=== PATIENT | female | born 1950 | race Caucasian/White ===

== ENCOUNTER 2020-09-03 18:12 | Emergency (ER) | payer BC, MEDICARE ==
[~2020-09-03] VITALS: Ht 167.6 cm; Wt 117.9 kg
--- NOTE | 2020-09-03 18:50 | ED Upper Extremity ---
General Chief Complaint: Trauma-Non Activation Stated Complaint: FALL - L SHOULDER PAIN Nursing Triage Note: Left upper arm/Shoulder pain, pain to left hip area Nursing Sepsis Screen: No Definite Risk Source: patient Exam Limitations: no limitations (NATANAEL CHIANG MED STUDENT) History of Present Illness Date Seen by Provider: Sep 03, 2020 Time Seen by Provider: 18:25 Initial Comments Patient is a 70yo female presenting via POV c/o L shoulder pain. She states about 30 minutes prior to presentation she was in a hurry and tripped on the top step of the 3 steps leading to her garage and fell, landing on her left shoulder and left hip. She did not hit her head and denies LOC. She placed her shoulder in a sling and had her and daughter drive her straight to the ED. She states the pain is a 7/10 and non-radiating. She has a history of A-fib, but she states the fall was mechanical and denies lightheadedness or syncope. Location Injury Occurred: home Onset: just prior to arrival Pain/Injury Location: left shoulder Method of Injury: fell (NATANAEL CHIANG MED STUDENT) Allergies and Home Medications Allergies Coded Allergies: No Known Drug Allergies (Unverified , 09/03/20) Patient Home Medication List Home Medication List Reviewed: Yes (LINNEA JERONIMO MD) Review of Systems Constitutional: No chills, No dizziness, No fever EENTM: No blurred vision, No double vision, No vision loss Respiratory: No cough, No short of breath, No wheezing Cardiovascular: No chest pain, No palpitations, No syncope Gastrointestinal: No abdominal pain, No constipation, No diarrhea, No nausea, No vomiting Genitourinary: no symptoms reported Musculoskeletal: see HPI Skin: no symptoms reported Psychiatric/Neurological: No Symptoms Reported (NATANAEL CHIANG MED STUDENT) Past Jutzghx-Kcjbpl-Opckyz Hx Patient Social History Alcohol Use: Denies Use Recreational Drug Use: No Smoking Status: Never a Smoker 2nd Hand Smoke Exposure: No Recent Foreign Travel: No Contact w/Someone Who Travel: No Recent Infectious Disease Expo: No Recent Hopitalizations: No Physical Abuse: No Sexual Abuse: No Mistreated: No Fear: No (NATANAEL CHIANG MED STUDENT) Immunizations Up To Date Date of Influenza Vaccine: Sep 02, 2020 (NATANAEL CHIANG MED STUDENT) Seasonal Allergies Seasonal Allergies: No (NATANAEL CHIANG MED STUDENT) Past Medical History Surgeries: Yes (Jaw surgery) Respiratory: No Cardiac: Yes Atrial Fibrillation, Hypertension Neurological: No Genitourinary: No Gastrointestinal: No Musculoskeletal: No Endocrine: No HEENT: No Cancer: No Psychosocial: No Integumentary: No (NATANAEL CHIANG MED STUDENT) Physical Exam Vital Signs Vital Signs - First Documented 09/03/20 18:19 Temp 36.4 Pulse 97 Resp 16 B/P (MAP) 150/119 (129) Pulse Ox 97 O2 Delivery Room Air (LINNEA JERONIMO MD) Vital Signs Capillary Refill : Less Than 3 Seconds (NATANAEL CHIANG MED STUDENT) Height, Weight, BMI Height: '" Weight: lbs. oz. kg; 41.00 BMI Method: General Appearance: WD/WN, no apparent distress HEENT: PERRL/EOMI, pharynx normal Neck: non-tender, full range of motion Cardiovascular: regular rate, rhythm, no edema, no murmur Respiratory: lungs clear, normal breath sounds, no respiratory distress Gastrointestinal: normal bowel sounds, non tender, soft Shoulder: bone tenderness, pain Elbow/Forearm: Left, pain Wrist: Yes non-tender, Yes normal ROM Hand: non-tender, normal ROM Neurologic/Tendon: normal sensation, normal motor functions Neurologic/Psychiatric: alert, normal mood/affect, oriented x 3 Skin: normal color, warm/dry (NATANAEL CHIANG MED STUDENT) Progress/Results/Core Measures Results/Orders My Orders Orders - LINNEA JERONIMO MD Shoulder, Left, 3 Views (09/03/20 18:36) Elbow, Left, 3 Views (09/03/20 18:42) (LINNEA JERONIMO MD) Vital Signs/I&O 09/03/20 18:19 Temp 36.4 Pulse 97 Resp 16 B/P (MAP) 150/119 (129) Pulse Ox 97 O2 Delivery Room Air (LINNEA JERONIMO MD) Blood Pressure Mean: 129 Diagnostic Imaging Diagonstic Imaging: Xray Plain Films/CT/US/NM/MRI: other (Left shoulder) Comments Left shoulder x-ray viewed by me and report reviewed. See report below: NAME: ANUPAMA CRAIN Charito [facility] REC#: [id number] PT STATUS: REG ER : 1950 PHYSICIAN: LINNEA JERONIMO MD ADMIT DATE: 09/03/20/ER Draft Date of Exam:09/03/20 SHOULDER, LEFT, 3 VIEWS INDICATION: Fell on left arm today. EXAMINATION: Left shoulder, 09/03/2020. FINDINGS: Three views of the shoulder demonstrate a comminuted proximal humerus fracture without definite involvement of the joint space. No dislocation. IMPRESSION: Comminuted proximal humerus fracture. Dictated on workstation # [id number] Dict: 09/03/201940 Trans: 09/03/201942 [facility] [id number] Interpreted by: MACARIO SEGAL MD Diagonstic Imaging: Xray Plain Films/CT/US/NM/MRI: elbow Comments Left elbow x-ray viewed by me and report reviewed. See report below: NAME: ANUPAMA CRAIN [facility] REC#: [id number] PT STATUS: REG ER : 1950 PHYSICIAN: LINNEA JERONIMO MD ADMIT DATE: 09/03/20/ER Draft Date of Exam:09/03/20 ELBOW, LEFT, 3 VIEWS INDICATION: Fell, arm pain. EXAMINATION: Left elbow, 09/03/2020. FINDINGS: Three views of the elbow. There is no obvious fracture or dislocation. A true lateral view, however, was not obtained. IMPRESSION: Limited evaluation with no obvious acute fracture. Dictated on workstation # [id number] Dict: 09/03/201941 Trans: 09/03/201943 [facility] [id number] Interpreted by: MACARIO SEGAL MD (LINNEA JERONIMO MD) Departure Impression Primary Impression: Left humeral fracture Qualified Codes: S42.292A - Other displaced fracture of upper end of left humerus, initial encounter for closed fracture Additional Impression: Fall on steps Qualified Codes: W10.8XXA - Fall (on) (from) other stairs and steps, initial encounter Disposition: 01 HOME, SELF-CARE Condition: Improved Departure-Patient Inst. Decision time for Depature: 20:00 (LINNEA JERONIMO MD) Referrals: ANGELA FREED MD (PCP/Family) Primary Care Physician ARTIE LAMBERT MD Patient Instructions: Shoulder Fracture Add. Discharge Instructions: Keep your arm in the sling as much as possible. You may ice in 20-minute intervals to help with pain and swelling. Use hydrocodone as prescribed for pain. You may wish to take a stool softener such as Colace as well to prevent constipation while on hydrocodone. Avoid driving, using machinery, or making important decisions while on hydrocodone. Follow-up with the orthopedist of your choice is soon as possible. Contact information for Dr. Lambert as below. Return to care or call if you have any questions or concerns. All discharge instructions reviewed with patient and/or family. Voiced understanding. Medical Student Attestation and Attending Note: I have personally interviewed and examined this patient along with Natanael Chiang MS4. I have reviewed student documentation including history, physical, and assessments. I agree with the documentation except where otherwise noted. Patient is ambulatory. She denies any significant hip pain. She denies head or neck pain. There is no loss of consciousness. Exam: General: Alert, oriented, no acute distress, well developed HEENT: Normocephalic and atraumatic Heart: Regular rate and rhythm without murmur Lungs: Clear to auscultation bilaterally with normal effort Extremities. Left arm is in a sling. She has notable tenderness on the proximal humerus over the lateral shoulder, especially anteriorly. Clavicle seems unaffected. 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 Mild to moderate tenderness over the left elbow. Neuropsych: Alert, oriented, no focal deficits Skin: Warm and dry without rashes (LINNEA JERONIMO MD) Copy Copies To 1: ARTIE LAMBERT MD, JOSEPH,MED STUDENT Sep 03, 2020 18:50 LINNEA JERONIMO MD Sep 03, 2020 19:56
--- NOTE | 2020-09-03 19:44 | Diagnostic Imaging Report ---
INDICATION: Fell on left arm today. EXAMINATION: Left shoulder, 09/03/2020. FINDINGS: Three views of the shoulder demonstrate a comminuted proximal humerus fracture without definite involvement of the joint space. No dislocation. IMPRESSION: Comminuted proximal humerus fracture. Dictated by: Dictated on workstation # [id number]
--- NOTE | 2020-09-03 19:45 | Diagnostic Imaging Report ---
INDICATION: Fell, arm pain. EXAMINATION: Left elbow, 09/03/2020. FINDINGS: Three views of the elbow. There is no obvious fracture or dislocation. A true lateral view, however, was not obtained. IMPRESSION: Limited evaluation with no obvious acute fracture. Dictated by: Dictated on workstation # [id number]
[2020-09-03] MEDS ORDERED: ACHD5005 PO (19:58)
[2020-09-03] MEDS ORDERED: HYDROcodone/APAP 5 MG/325 MG (LORTAB) TAB PO ONE (20:00)
[2020-09-03] MEDS ORDERED: HYDROcodone/APAP 5 MG/325 MG (LORTAB) TAB ONE (20:01)
[2020-09-03 20:18] VITALS: BP 150/119
== END 2020-09-03 20:19 | disposition home or self-care (01) ==
LOC: EDUNIT# 18:12 → ER 18:14
DX: S42.292A Other displaced fracture of upper end of left humerus, initial encounter for closed fracture (principal); W10.8XXA Fall (on) (from) other stairs and steps, initial encounter; Y92.094 Garage of other non-institutional residence as the place of occurrence of the external cause
CPT/HCPCS: 73030; 73080